=== PATIENT | female | born 1955 | race Caucasian/White ===

== ENCOUNTER → 2023-06-15 09:34 | Outpatient (BNVA) | payer MEDICARE, BC, SELFPAY | PROVIDERS: PCP Internal Medicine; Referring Provider Internal Medicine | DX: M16.12 Unilateral primary osteoarthritis, left hip (principal) | CPT/HCPCS: 99202 ==

== ENCOUNTER 2023-07-02 05:07 | Outpatient (CLI) | payer MEDICARE, BC, SELFPAY ==
[2023-07-02 10:14] LABS: HCT 43.2 % (36.0-46.0); HGB 14.4 g/dL (11.2-15.7); MCH 31.9 pg (27.0-33.0); MCHC 33.3 % (32.0-36.0); MCV 96 fL (80-95); MPV 9.7 fL (8.0-11.0); Platelet Count 279 10^3/uL (130-400); RBC 4.51 10^6/uL (3.93-5.22); RDW 12.8 % (11.7-14.6); WBC 7.49 10^3/uL (4.4-10.8)
[2023-07-02 10:29] LABS: Anion Gap 9.3 mmol/L (3-11); BUN 20 mg/dL (7-18); CO2 28.7 mmol/L (21.0-32.0); CREATININE 0.8 mg/dL (0.55-1.02); Calcium 9.7 mg/dL (8.5-10.1); Chloride 103 mmol/L (98-107); Estimated GFR 79.71 (mL/min/1.73m2); Glucose 104 mg/dL (74-106); Potassium 3.9 mmol/L (3.5-5.1); Sodium 141 mmol/L (136-145)
== END 2023-07-02 05:08 | disposition home or self-care (01) ==
LOC: LBO 05:07
PROVIDERS: PCP Internal Medicine; Visit Provider Student in an Organized Health Care Education/Training Program
DX: M16.12 Unilateral primary osteoarthritis, left hip (principal); Z01.818 Encounter for other preprocedural examination
CPT/HCPCS: 36415; 80048; 85027

== ENCOUNTER 2023-07-02 15:36 | Outpatient (CLI) | payer MEDICARE, BC, SELFPAY ==
--- NOTE | 2023-07-02 08:45 | DI.RAD_ITS ---
Exam(s) XR PELVIS AP EXAM: XR PELVIS AP CLINICAL HISTORY: L THR planning. TECHNIQUE: 2D digital imaging was performed.One images were obtained. COMPARISON: CR XR HIP LT MIN 2V AND PELVIS from 05/08/2023 FINDINGS: BONES: No acute fracture is present. No bony destructive lesion is seen. JOINTS: Marked degenerative changes are seen in the left hip with loss of the superior joint space. Osteophytes and subchondral sclerosis are also seen. There is more mild superior joint space narrowi ng in the right hip. Chondrocalcinosis is present. No joint space narrowing is present. SOFT TISSUE: Normal. IMPRESSION: Marked arthrosis of the left hip. DATA REPOSITORY: RADIATION DOSE DELIVERED:
== END 2023-07-02 15:37 | disposition home or self-care (01) ==
LOC: DIORS 15:37
PROVIDERS: PCP Internal Medicine; Visit Provider Physician Assistant
DX: M16.12 Unilateral primary osteoarthritis, left hip (principal); Z01.818 Encounter for other preprocedural examination
CPT/HCPCS: 36415; 80048; 85027; 72170

== ENCOUNTER 2023-07-11 06:15 | Day surgery (SDC) | payer MEDICARE, BC, SELFPAY ==
[2023-07-11] VITALS (9 sets, daily range): BP systolic 137–170; BP diastolic 75–102; PULSE 64–75; RESP 16–18; TEMP 36.3–36.6; O2SAT 97–100; BMI 21.7
[2023-07-11] MEDS: Celecoxib 200 MG CAP 400 MG PO (06:29)
[2023-07-11] MEDS: Acetaminophen 500 MG TAB 1000 MG PO (06:29)
[2023-07-11] MEDS: Lactated Ringers 1,000 ML 80 ML IV (06:41)
--- NOTE | 2023-07-11 06:55 | W.ANESPRE ---
General Info Date of Service Date Performed: 07/11/23 Height: 5 ft 5 in Weight: 59.3 kg Body Mass Index (BMI): 21.7 Surgical Procedure: Operation Date: 07/11/23 08:05 Proposed Procedure Side Surgeon p Hip Total Hip Anterior, Corail Left Lars Guevara MD Meds Allergies and Home Medications Allergies Allergy/AdvReac Type Severity Reaction Status Date / Time No Known Allergies Allergy Verified 07/11/23 06:15 Home Medication Medication Instructions Recorded atorvastatin 20 mg tablet 20 mg PO DAILY 05/17/23 calcium carbonate 250 mg-vitamin 2 tab PO DAILY 05/18/23 D3 3.125 mcg (125 unit) tablet cetirizine 10 mg tablet 10 mg PO DAILY PRN 05/18/23 famotidine 40 mg tablet 40 mg PO DAILY 05/18/23 fluticasone propionate 50 1 spray intranasal DAILY 05/18/23 mcg/actuation nasal spray,suspension (Flonase Allergy Relief) levothyroxine 112 mcg capsule 112 mcg PO DAILY 05/18/23 losartan 100 mg tablet 100 mg PO DAILY 05/18/23 lutein 20 mg capsule 20 mg PO DAILY 05/18/23 venlafaxine 37.5 mg tablet 75 mg PO DAILY 07/02/23 Current Visit Medications: Current Medications Generic Name Dose Route Start Last Admin Trade Name Freq PRN Reason Stop Dose Admin Acetaminophen 1,000 mg 07/11/23 06:00 07/11/23 06:29 Acetaminophen 500 Mg Tab PO 07/11/23 23:59 1,000 mg PREOP LEONORA Administration Celecoxib 400 mg 07/11/23 06:00 07/11/23 06:29 Celecoxib 200 Mg Cap PO 07/11/23 23:59 400 mg PREOP LEONORA Administration Ringer's Solution 1,000 mls @ 80 mls/hr 07/11/23 06:00 07/11/23 06:41 IV 07/11/23 23:59 80 mls/hr INFUSION LEONORA Administration Cefazolin Sodium/Dextrose 2 gm in 50 mls @ 100 mls/hr 07/11/23 06:00 Ancef Duplex IVPB 07/11/23 23:59 PREOP LEONORA Tranexamic Acid/Sodium Chloride 1,000 mg in 100 mls @ 600 mls/hr 07/11/23 06:00 IVPB 07/11/23 23:59 PREOP LEONORA IV Miscellaneous Supplies 1 each 07/11/23 06:00 Iv Access IV 07/11/23 23:59 DIRECTED LEONORA Sodium Chloride 0 ml 07/11/23 06:00 Normal Saline Flush 10 Ml Syr IV 07/11/23 23:59 PRN PRN Sodium Chloride 0 ml 07/11/23 06:00 Normal Saline 10 Ml Vial IJ 07/11/23 23:59 DIRECTED PRN Sterile Water 0 ml 07/11/23 06:00 Water,Injection,Sterile 10 Ml Vial IJ 07/11/23 23:59 DIRECTED PRN PFSH Active Problems Active Problems: Problem Status Onset Code Osteoarthritis of left hip M16.12 Hypertensive disorder I10 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 Depressive disorder F32.A Medical History Medical History Dysplasia of cervix, high grade KETAN 2 Former smoker Surgical History Surgical History (Updated 07/11/23 @ 06:17 by Eric Godoy) Hx of tonsillectomy History of tubal ligation History of loop electrical excision procedure (LEEP) Tobacco Smoking/Tobacco Use Status: Former Tobacco Use Alcohol Alcohol Intake: current Alcohol intake frequency: a few times a month Substance Use Substance use: Never Substance use type: does not use Vital Signs and Lab Results Vital Signs Most Recent Vital Signs in EMR: Most Recent Vital Signs Temp Pulse Resp BP Pulse Ox 36.5 C 70 16 137/75 98 07/11/23 06:17 07/11/23 06:17 07/11/23 06:17 07/11/23 06:17 07/11/23 06:17 Lab Results Blood Type / Crossmatch: No Data to Display Complete Blood Count: White Blood Count 7.49 10^3/uL (4.4-10.8) 07/02/23 10:10 Red Blood Count 4.51 10^6/uL (3.93-5.22) 07/02/23 10:10 Hemoglobin 14.4 g/dL (11.2-15.7) 07/02/23 10:10 Hematocrit 43.2 % (36.0-46.0) 07/02/23 10:10 Platelet Count 279 10^3/uL (130-400) 07/02/23 10:10 Complete Metabolic Panel: Sodium 141 mmol/L (136-145) 07/02/23 10:10 Potassium 3.9 mmol/L (3.5-5.1) 07/02/23 10:10 Chloride 103 mmol/L (98-107) 07/02/23 10:10 Carbon Dioxide 28.7 mmol/L (21.0-32.0) 07/02/23 10:10 BUN 20 mg/dL (7-18) H 07/02/23 10:10 Creatinine 0.8 mg/dL (0.55-1.02) 07/02/23 10:10 Est GFR (CKD-EPI 2020) 79.71 (mL/min/1.73m2) 07/02/23 10:10 Calcium 9.7 mg/dL (8.5-10.1) 07/02/23 10:10 Glucose 104 mg/dL (74-106) 07/02/23 10:10 Liver Function Panel: No Data to Display Coagulation Panel: No Data to Display Cardiac Panel: No Data to Display Arterial Blood Gas: No Data to Display Venous Blood Gas: No Data to Display Pancreas Panel: No Data to Display Thyroid Panel: No Data to Display Infectious Disease: No Data to Display Blood Cultures: No Data to Display Toxicology Panel: No Data to Display Anesthesia Assessment and Plan Anesthesia History Personal History: No History of Anesthesia Complications Family History: No Family History of Anesthesia Complications Exercise Tolerance Exercise Tolerance: Metabolic Equivalents>4 Pertinent Negatives Pertinent Negatives: No Major Cardiovascular Symptoms or Complaints and No Major Pulmonary Symptoms or Complaints Cardiac & Pulmonary Exam Cardiac Exam: Normal S1/S2 Heart Sounds Pulmonary Exam: Clear Bilateral Breath Sounds Implantable Cardiac Device Does patient have a Pacemaker or an ICD?: No Airway Exam Known Difficult Airway: No Mallampati Class: 2 Mouth Opening: Normal (> 3cm) Thyromental Distance: Greater than 3 cm Neck Range of Motion: Full ROM Neck Circumference: Normal Teeth Condition: Removable Dentures/Plates Upper ASA Classification ASA Score: ASA 2 Emergency Case?: No NPO Status NPO Status: NPO Clears >2 hours, Solids >8 hours Anesthesia Plan Resuscitation Status: Full Code Anesthesia Technique: General Anesthesia Airway Planned: Natural Airway Monitors Used: Standard Monitors and SedLine Preoperative Comments:: Requests General over SAB.
--- NOTE | 2023-07-11 07:20 | PDOC.DSDIS_ITS ---
Date of service: 07/11/23 Time of Service: 07:20 Discharge Plan Disposition Patient Disposition: Home Condition: Good Discharge Details Reason For Visit: L THR Attending Provider: Lars Guevara Primary Care Provider: Galina Mata Home Meds and New Rx's Prescriptions: New acetaminophen 500 mg tablet 1,000 mg PO TID Qty: 90 3RF aspirin 81 mg tablet,delayed release (DR/EC) 81 mg PO BID Qty: 60 0RF celecoxib 200 mg capsule 200 mg PO BID Qty: 60 0RF pantoprazole 40 mg tablet,delayed release (DR/EC) 40 mg PO DAILY Qty: 30 0RF dexamethasone 4 mg tablet 4 mg PO DAILY Qty: 2 0RF oxycodone 5 mg tablet 5 mg PO Q4H MDD 6 tabs PRN (Reason: pain) Qty: 20 0RF Continued venlafaxine 37.5 mg tablet 75 mg PO DAILY atorvastatin 20 mg tablet 20 mg PO DAILY calcium carbonate-vitamin D3 250 mg-3.125 mcg (125 unit) tablet 2 tab PO DAILY cetirizine 10 mg tablet 10 mg PO DAILY PRN famotidine 40 mg tablet 40 mg PO DAILY fluticasone propionate [Flonase Allergy Relief] 50 mcg/actuation spray,suspension 1 spray intranasal DAILY Rx Instructions: administer into each nostril levothyroxine 112 mcg capsule 112 mcg PO DAILY losartan 100 mg tablet 100 mg PO DAILY lutein 20 mg capsule 20 mg PO DAILY Rx Instructions: give with meal/snack Discharge Instructions Additional Instructions: Total Hip Discharge Instructions Activity: The most important activity is to walk. You should try to take short walks a few times a day. You have no restrictions on movement or positioning, but do not try to force what you do. You will find some stiffness and weakness with hip flexion (lifting your knee). Do not try to strengthen this too early, continue to practice walking and stairs and this will come. - Outpatient physical therapy can be helpful to help return you to a normal gait and improve your flexibility and strength. This can start around 2 weeks. For some patients, it?s not necessary. Usually this is determined at the time of discharge or at the first post-operative visit. - You should wear the MARIBEL hose on both legs for 2 weeks. Dressing: Keep the surgical dressing in place for at least one week. After the first week it may be removed and replace with light gauze and tape or nothing. It may get wet after 3 days but avoid soaking the dressing. If it gets wet, just lightly pat dry. It is important to always keep some gauze between skin folds, especially when you are sitting. Spend some time with the wound exposed when you are lying flat as the incision does wrinkle onto itself. Medications: - You should take Tylenol and an anti-inflammatory Celebrex as your primary pain control medications. If the Celebrex is too expensive or not covered, please call the office for another alternative (Advil/Ibuprofen or Naproxen/Aleve). - You have been prescribed a stronger pain medication Oxycodone for breakthrough pain, take as needed as prescribed. - You have also been prescribed a stomach acid reduction agent Pantoprozole to help reduce stomach acid and reflux. - You have also been prescribed Decadron to help with post-operative nausea and pain. You will take this for two days starting tomorrow. - You will be taking Aspirin 81mg twice a day for DVT prevention unless instructed otherwise. - If you have constipation you should take Colace or Miralax (both [id number]). It takes most people 3-4 days to have a bowel movement. Follow-up: 2 weeks If you have any acute concerns or questions, please do not hesitate to contact the office at [phone]. You may contact Dr. Guevara with any questions after hours through the hospital at [phone] or on his cell phone at [phone]. Stand Alone Forms: Anesthesia Discharge Inst., Savanna Reddy (U) Referrals: Lars Guevara MD [ [facility] STAFF PHYSICIAN] - Equipment/Supplies: Walker Activity:: Activity as Tolerated Shower/Bathe:: 72 hours Diet:: As Tolerated Discharge Orders Discharge Orders: Discharge Order (Routine); Ordered 07/11/23 Ordered By: Lars Guevara DS: Diagnosis Discharge Diagnosis (1) Osteoarthritis of left hip: Status: Resolved
[2023-07-11] MEDS: ceFAZolin 2 GM/50 ML BAG IVPB (07:55)
[2023-07-11] MEDS: TRANEXAMIC ACID/SOD. CHL. 1,000 MG/100 ML BAG 600 MG IVPB (07:59)
--- NOTE | 2023-07-11 08:50 | DI.RAD_ITS ---
Exam(s) XR HIP LT IN OR EXAM: XR HIP LT IN OR CLINICAL HISTORY: OA LEFT HIP TECHNIQUE: 2D and realtime digital imaging was performed. CONTRAST MATERIAL: Refer to procedure report. COMPARISON: CR XR HIP LT MIN 2V AND PELVIS from 05/08/2023 CR XR PELVIS AP from 07/02/2023 FINDINGS: Fluoroscopy was provided for Dr. Guevara during the performance of a left total hip replacement. P lease refer to the procedure report for complete details. Ka,r=1.98 mGy IMPRESSION: RADIATION DOSE DELIVERED: 0.0 871.7 0
[2023-07-11] MEDS: fentaNYL 100 MCG/2 ML VIAL IVP ×2 (09:23→09:45)
--- NOTE | 2023-07-11 09:39 | W.PM.OP ---
Date of service: 07/11/23 Time of Service: 07:50 Operative Note Operative Note DATE OF PROCEDURE: 07/11/23 PRE-OP DIAGNOSIS: Left Hip Osteoarthritis POST-OP DIAGNOSIS: same PROCEDURE: Left Anterior Total Hip Arthroplasty with Intraoperative Navigation SURGEON: Lars Guevara CLAIMS CUSTOMER SERVICE REPRESENTATIVE: Romeo Samuel ANESTHESIA TYPE: Spinal Refer to Anesthesia Record ESTIMATED BLOOD LOSS: 150 PATHOLOGY: none sent TOURNIQUET TIME: 0 COMPLICATIONS: None Patient was transported to: PACU Patient's condition: stable Implants: 1. Depuy [place] Acetabular Component, 52mm 2. Depuy Acetabular Liner, [id number] 3. Depuy Corail Short Neck Collared Femoral Stem, Size 11 4. Depuy Altrx Ceramic Femoral Head, Size 36+5mm Indications: I have seen Yudelka in clinic for symptoms of hip arthritis, confirmed with radiographic findings. Yudelka has exhausted nonoperative methods and was having significant limitations in daily function and desired better function and less pain. I discussed the technical details of a hip replacement. I explained the risks of the procedure to include, but not limited to, bleeding, infection, pain, stiffness, fracture, damage to nerves and vessels, damage to muscles and tendons, loosening, instability, leg length inequality, need for repeat procedure, blood clot and cardiopulmonary demise. Despite these risks, [NAME] elected to proceed. Findings: There was significant signs of arthritis throughout the hip. Procedure Description: Yudelka was greeted in the preoperative holding area where the correct side was identified and marked. The consent was reviewed with the patient and signed. The history and physical was updated. All questions were answered. She was taken back to the operating room. A general anesthestic was then administered. The feet were wrapped with cast padding and Coban and then placed into the boot liners and then into the boots. Care was taken to protect the skin and make sure the heels were fully down and the boots were stable. The patient was then positioned onto the HANA table. Both legs were held in a neutral position. SCDs were applied. The patient was then slid down onto a peroneal post. Prophylactic antibiotics in the form of Cefazolin were administered. 1g of Tranxemic Acid was given intravenously within 30 minutes of incision. The left leg was then prepped with Chloraprep and draped in a standard fashion. A second prep with Chloraprep was performed prior to placement of a shower-curtain type drape with Iodine impregnated skin protection. A timeout to confirm correct identity, side and site, procedure, allergies, anesthesia, and medical concerns was performed. An obliquely oriented incision was made starting lateral to the ASIS and running distal over the Tensor Fascia Madai (TFL) muscle belly toward the fibular head, approximately 10cm. The skin and soft tissue was dissected sharply, through Chris?s fascia, and to the fascia of the TFL. With the fascia and superior border of the IT band identified, the fascia was incised with a new knife just above any perforators from the IT band. The TFL muscle belly was bluntly dissected away from the fascia and moved laterally. The fat between TFL and rectus was identified to ensure the dissection was not within the TFL. Blunt dissection created space between abductors and the capsule and retractor was placed over the lateral femoral neck. The fibers of the rectus femoris tendon were identified and these were freed from the anterior capsule. A second cobra retractor was placed around the medial femoral neck. The TFL was further retracted laterally to show the deep fascia. Careful dissection through this layer identified three main crossing vessels of the lateral femoral circumflex. These were cauterized in multiple locations and then cut without any noticeable bleeding. The TFL was further released bluntly from the deep fascia to expose anterior hip capsule and fat The orthopaedic retractor was then placed beneath the TFL and against sartorius and medial soft tissues to protect and retract the soft tissues. A T-capsulotomy was then performed starting at the superior lateral acetabulum and moving distally to the intertrochanteric ridge. These capsular flaps were tagged with a No. 1 Ethibond and elevated from within. The capsular flaps were released to the shoulder of the lateral neck and to the lesser trochanter to give excellent visualization of the proximal femur. A neck osteotomy was performed using an oscillating saw based on preoperative templates. This cut started in the shoulder and of the lateral neck and exited medially. The saw was at all times directed medially to avoid injury to the greater trochanter. Gross traction was applied to the leg and the osteotomy opened. The femoral head was removed with a corkscrew, making sure to protect the TFL on its exit. Traction was released after head removal. This was measured on the back table to determine the starting reamer size. Portions of the rectus obscuring visualization were minimally elevated off the superior acetabulum. An anterior retractor was placed over the anterior wall between capsule and labrum and attached to the Gripper retraction system. The femur was rotated to 90 degrees and medial capsule was fully released until the lesser trochanter was palpable and visible; the femur was returned to 30 degrees. A posterior retractor was placed similarly between capsule and labrum. This provided excellent visualization. The contents of the cotyloid fossa were removed with electrocautery and the labrum was removed with a knife. There was a notable floor osteophyte. There was significant chondromalacia of the superior acetabulum. Acetabular reaming began with a 48mm reamer. This first reaming was directed anterior to posterior and medial to get down to the true floor. This was inspected and reamed until the true floor was reached. The anterior retractor was then released and entry and exit was provided by traction on the capsular flaps. I then reamed sequentially up to a 52mm reamer where good fit was obtained. The larger reamers were oriented based on anatomical reference of the anterior and lateral sims to ensure proper abduction and anteversion. Positioning and size was confirmed with the fluoroscopy. A 52mm Depuy [place] acetabular component was selected. The acetabulum was reamed around the periphery with the selected acetabular size to prevent a rim fit. The deep tissues were irrigated. The acetabular component was then impacted in a position of about 40-45 degrees of abduction and 15-20 degrees of anteversion, using the patient?s anatomy as the ultimate landmark. Fluoroscopy was used to confirm this. There was excellent manager adobe of the acetabular component and the inserting handle was removed. A primary acetabular screw was placed into the ilium by drilling through one of the holes in the acetabular component. This was measured and an approrpriately sized screw was placed with excellent purchase. It was checked not to be proud. A second screw was placed in a similar fashion. The acetabular liner, Depuy [id number] polyethylene liner, was inserted and lined up with the tines of the acetabular component. There was no soft tissue interposition. The liner was then impacted into position and confirmed to be well-seated. A portion of the sridhar-articular cocktail was then injected around the acetabulum into the capsule and periosteum. This cocktail consisted of 123mg of Ropivacaine, 0.25mg of Epinephrine, 0.04mg of Clonidine, and 15mg of Ketorolac, diluted to 50cc. The leg was rotated to 120 degrees. Any remaining medial capsule was released until the lesser trochanter was easily palpable. A retractor was placed medially. The lateral capsule was further released into the shoulder to allow access to the greater trochanter. A Urbina retractor was placed over the greater trochanter which allowed the trochanter to flip in front of the capsule for excellent exposure. The leg was brought down into maximal extension and 20 degrees of adduction while ensuring there was no impingement on the acetabulum. Any remnant capsule within the trochanter was released. Piriformis and obturator externis were identified and protected. There was excellent access to the proximal femur. The lateral neck remnant was removed with a rongeur. A blunt canal probe was used to identify the canal and trajectory for later broaching. A box osteotome initiated the broach course. A small curved rasp and a curved curette were used to work laterally. Broaching then began with a size 8 Corail broach. This was inserted manually around the trochanter and into the canal before mallet blows. The broach was seated to the neck cut level based on the neck cut and the preoperative template. Sequential broaching was continued with the [employer] pneumatic broaching device until a tight fit was obtained with good rotational control of the femur. A trial short neck was inserted along with a +5 trial head. The leg was brought out of extension and adduction and then reduced with traction and internal rotation. The leg was stable anteriorly in a position of 30 degrees of extension and 90 degrees of external rotation. Fluoroscopy was used to ensure there was no fracture and the stem was seated well. Leg lengths were checked with an AP pelvis and pelvic reference points. Conferize navigation system was used to confirm appropriate positioning and leg length and offset. Once content with the desired offset and leg lengths, the leg was brought back into extension, external rotation and adduction. The periosteum and surrounding tissue was injected with remaining portion of the sridhar-articular cocktail. The proximal femur was irrigated as well as the deep tissues. The Depuy Corail short neck collared stem, size 11, was then manually inserted into the proximal femur making sure to control rotation. It was then malleted into position with light blows, giving breaks to allow bone expansion and decrease risk of fracture. The selected Depuy Altrx Ceramic Head, size 36+5mm, was then placed onto the clean and dry trunnion and secured with impaction onto the tapered fit. The leg was brought back out of extension and adduction and reduced with traction and internal rotation. Stability was confirmed with no shuck at 90 degrees of external rotation and 30 degrees of extension. No impingement through range of motion arc. Final x-ray images were obtained with fluoroscopy to confirm adequate positioning and no intraoperative fracture. The deep tissues were thoroughly irrigated with Surgiphor, betadine solution. This was allowed to sit in the wound for 3 minutes before being thoroughly irrigated out with normal saline. The capsule was then reapproximated with the previously placed Ethibond sutures. The TFL fascia was finally closed with a No. 2 Stratafix, barbed suture. Deep tissues were then reapproximated with 0 Vicryl and a running 2-0 Vicryl. The skin was closed with a running 4-0 Monocryl in a subcuticular fashion. This was reinforced with skin glue. A Mepilex silver dressing was applied. At the end of the case, all counts were correct. Yudelka was transferred to the hospital bed without difficulty and suffering no apparent complication. Yudelka has a good prognosis. Physical therapy will start today and without restrictions, weight-bearing as tolerated. Aspirin 81mg BID will be used for DVT prophylaxis.
[2023-07-11] MEDS: oxyCODONE 5 MG TAB PO (10:26)
--- NOTE | 2023-07-11 11:18 | IN_ITS ---
PT Notes Visit Reasons: L THR Physical Therapy Day Surgery Initial Evaluation Date: 07/11/2023 Referring Doctor: JESSICA Mccullough PT Orders: PT CONSULT: S/P Ortho Surgery Precautions: WBAT on the L LE with AD. Patient Profile/Admitting Diagnosis: Yudelka is a 67-year-old female with degenerative joint disease of the left hip and status post left total hip arthroplasty on postoperative day 0. PMHX: Medical History Dysplasia of cervix, high grade KETAN 2 Former smoker Surgical History (Updated 05/18/23 @ 10:37 by Jamir Savage RN) History of tubal ligation History of loop electrical excision procedure (LEEP) Social History/Home Situation: Lives with in a private home with 3 steps to enter with a rail on one side. Independent with all aspects of ADLs prior to surgery. No falls in the past year. Equipment Owned/DME: None Subjective: Complains of burning pain 6-7/10 on the hip and outer side of thigh that got aggravated when she first attempted to walk to the bathroom. Objective: General Observation: Mepilex Ag over surgical incision. TDS to be legs. Mental Status: A and O x 4 Pain: As above ROM: Right Lower Extremity: Hip flexion allows only up to 100 degrees. Hip abduction WFL. Knee flexion WFL. Ankle dorsiflexion WFL. Ankle plantarflexion WFL. Left Lower Extremity: Hip flexion WFL. Hip abduction WFL. Knee flexion WFL. Ankle dorsiflexion WFL. Ankle plantarflexion WFL. Strength: Right Lower Extremity: Hip flexors 3-/5. Hip abductors 4-/5. Knee flexors 4/5. Knee extensors 4-/5. Ankle dorsiflexors 5/5. Ankle plantarflexors 5/5. Left Lower Extremity:Hip flexors 5/5. Hip abductors 5/5. Knee flexors 5/5. Knee extensors 5/5. Ankle dorsiflexors 5/5. Ankle plantarflexors 5/5. Sensation: Intact as to pain and light pressure in B LE Bed Mobility/Transfers: Minimal cueing provided for use of B hands as needed for support, movement sequence, AD management, and posture to reduce fall risk and minimize pain report Supine to sit contact guard assist Sit to stand stand by assist Stand to sit stand by assist Bed to chair contact-guard assist Gait: Facilitated safe and correct performance of level surface ambulation covering a distance of 150 feet using front wheeled walker with reciprocal step through heel-toe gait pattern with diminishing report of burning pain on the hip and the lateral side of the thigh. Contact-guard assist only with minimal verbal cueing provided for limb movement sequence, AD management, and posture to reduce fall risk and minimize pain report. Stairs: Guided patient through safe and correct negotiation of 3 x 4 inch steps and 2 x 6 inch step holding onto bilateral rails with step to gait pattern requiring standby assist and minimal verbal cueing for movement sequence, hand placement, and posture to reduce fall risk and minimize pain report. Balance: Static Sitting: Normal Dynamic Sitting: Normal Static Standing: Fair Dynamic Standing: Fair Special Tests: Mobility Limitations Standardized Measure [facility] AM-PAC 6 clicks Basic Mobility Inpatient Short Form: Raw Score: 22 CMS Score: 21% deficit Informed Consent/Education: Patient instructed in purpose of PT consult. Packet containing LOVE exercise protocol has been given to patient. Education and training on initial set of exercises that can be done at home have been completed with patient. ASSESSMENT: Transient postoperative lateral femoral cutaneous nerve affection leading to meralgia paresthetica on the L. Orthopedic surgeon aware. Patient requires use of a front-wheeled walker for mobility ADL performance maximize independence and reduce fall risk. Patient presents with clinical signs and symptoms consistent with current/admitting diagnoses that have resulted to mobility limitations, gait instability, generalized weakness, and impairment of motor control as demonstrated by the following impairment level findings: 1. Decreased strength to left hip and knee major muscle groups 2. Impaired standing balance 3. Limitation of joint range of motion in left hip flexion Impairments are contributing to the following functional limitations: 1. Inability to safely ambulate without assistive device 2. Increase completion time for mobility ADL performance 3. Increased fall risk Patient is assessed as a 48365 moderate complexity based on the following: History: 67-year-old female with impairment level findings, functional limitations, and past medical history as indicated above Examination: Demonstrable impairment in strength, balance, and mobility level with underlying impairments and functional limitations as documented above Presentation: Evolving Decision Makin moderate complexity Goals: N/A. PT evaluation and 1-2 treatment sessions only for functional mobility training using recommended AD and for HEP instruction. Plan of Care/Treatment Plan: N/A. PT evaluation and 1-2 treatment session only for functional mobility training using recommended AD and for HEP instruction. DISCHARGE RECOMMENDATIONS: Home when medically cleared by orthopedic surgeon. Recommend outpatient PT services in order to optimize functional mobility outcomes and facilitate return to independent community ambulation without an assistive device. TREATMENT CODE/TIME: 9716 2 x 20 minutes for 1 unit, 9753 0 x 7 minutes for 1 unit (11:18-11:49). Really Thank you for the opportunity to participate in the care of this patient. Please sign an return this page within 30 days if you agree with the above POC. Thank you! Physician Signature Date [facility] Thank you for the opportunity to participate in the care of this patient. Gosia Burgos PT, DPT, CLT [facility] [place], [place]
--- NOTE | 2023-07-11 12:25 | W.ANESPOSTOP ---
Postoperative Evaluation Date, Time and Location Date Performed: 07/11/23 Time Performed: 12:23 Patient Location: Day Surgery Unit Vital Signs Most Recent Imported Vital Signs: Most Recent Vital Signs Temp Pulse Resp BP Pulse Ox 36.6 C 69 17 150/85 H 97 07/11/23 10:33 07/11/23 10:33 07/11/23 10:33 07/11/23 10:33 07/11/23 10:33 Pain Score Most Recent Pain Score: Most Recent Pain Score Pain Level 6 07/11/23 10:33 Assessment Mental Status: Awake (Alert & Oriented to Patient Baseline) Airway and Respiratory Function: Patent airway with normal (patient baseline) respiratory exam Cardiovascular Function: Hemodynamically Stable Hydration Status: Adequately Hydrated Nausea & Vomiting: No Nausea or Vomiting Pain: Pain is tolerable per patient Peripheral Nerve Block: Patient did not receive a nerve block
== END 2023-07-11 12:28 | disposition home or self-care (01) ==
LOC: SUR 13:08
PROVIDERS: PCP Internal Medicine; Visit Provider Student in an Organized Health Care Education/Training Program
PROC: (CPT 27130; principal; 2023-07-11 07:45)
DX: M16.12 Unilateral primary osteoarthritis, left hip (principal); Z96.642 Presence of left artificial hip joint; I10 Essential (primary) hypertension; F32.A Depression, unspecified; E07.9 Disorder of thyroid, unspecified; Z79.899 Other long term (current) drug therapy
CPT/HCPCS: 20985; 27130; C1776; 97162; 97530; 73501; J0690; J1100; J2001; J2371; J2401; J2405; J2704; J3010

== ENCOUNTER 2023-07-26 15:29 | Outpatient (CLI) | payer MEDICARE, BC, SELFPAY ==
--- NOTE | 2023-07-26 13:30 | DI.RAD_ITS ---
Exam(s) XR HIP LT COMPLETE AP PELVIS EXAM: XR HIP LT COMPLETE AP PELVIS CLINICAL HISTORY: 1st POST OP L LOVE. TECHNIQUE: 2D digital imaging was performed. Two views. COMPARISON: CR XR PELVIS AP from 07/02/2023 XA XR HIP LT IN OR from 07/11/2023 FINDINGS: BONES: No acute fracture is present. No bony destructive lesion is seen. JOINTS: No dislocation present. There has been no change in the alignment of the left hip prosthesi s. Mild degenerative changes are noted in the right hip. The acetabulum appears shallow. SOFT TISSUE: Normal. IMPRESSION: Stable appearance of left hip prosthesis. DATA REPOSITORY: RADIATION DOSE DELIVERED:
== END 2023-07-26 15:30 | disposition home or self-care (01) ==
LOC: DIORS 15:29
PROVIDERS: PCP Internal Medicine; Referring Provider Internal Medicine; Visit Provider Student in an Organized Health Care Education/Training Program
DX: Z96.642 Presence of left artificial hip joint (principal); Z47.1 Aftercare following joint replacement surgery
CPT/HCPCS: 73502